=== PATIENT | female | born 1995 | race Caucasian/White ===

== ENCOUNTER 2016-05-03 06:10 | Emergency (ER) | payer OTHER ==
[~2016-05-03] VITALS: Ht 162.6 cm; Wt 64.1 kg
[2016-05-03 06:16] VITALS: TEMP 37.4; Ht 162.6 cm; Wt 64.1 kg
[2016-05-03] MEDS ORDERED: ETONMIS VAGRING (06:42)
[2016-05-03] MEDS ORDERED: SODIUM CHLORIDE 0.9% 1000ML 1,000 ML IV STA (07:10)
[2016-05-03 07:21] LABS: BASO % 0.4 %; BASO ABS # 0.02 K/uL (0-0.2); COMPLETE YES; EOS % 0.2 %; HEMATOCRIT 41.2 % (37-47); IG% 0.2 %; LYMPH % 9.4 %; LYMPH ABS # 0.48 K/uL (1.2-3.4); MEAN CELL VOLUME 84.3 fL (80-100); MEAN CORPUSCULAR HEMOGLOBIN 29.4 pg (25-34); MEAN PLATELET VOLUME 11.8 fL (7.4-10.4); MONO % 12.7 %; NEUT % 77.1 %; PLATELET COUNT 120 K/uL (130-400); RED BLOOD COUNT 4.89 M/uL (4.2-5.4)
[2016-05-03 07:22] LABS: URINE APPEARANCE CLEAR (CLEAR); URINE BILIRUBIN NEG (NEG); URINE COLOR YELLOW; URINE NITRITE NEG (NEG); URINE SPECIFIC GRAVITY 1.028 (1.000-1.030); UROBILINOGEN NEG (NEG); ZZUR CULT IF INDIC CLEAN CATCH NO
[2016-05-03 07:26] LABS: PARTIAL THROMBOPLASTIN RATIO 1.1; PROTHROMBIN TIME (PATIENT) 10.7 SECONDS (9.0-12.0)
[2016-05-03 07:26] LABS: MANUAL MICROSCOPIC REQUIRED? NO; REVIEW REQ? NO
[2016-05-03 07:30] LABS: ALT/SGPT 31 U/L (12-78); BLOOD UREA NITROGEN 7 mg/dl (7-18); BUN/CREATININE RATIO 6.3 (10-20); CALCIUM 8.9 mg/dl (8.5-10.1); CARBON DIOXIDE 25 mmol/L (21-32); CHLORIDE 106 mmol/L (98-107); GLUCOSE 96 mg/dl (70-99); MAGNESIUM 1.8 mg/dl (1.8-2.4); POTASSIUM 3.4 mmol/L (3.5-5.1); SODIUM 141 mmol/L (136-145)
[2016-05-03 07:40] LABS: ALKALINE PHOSPHATASE 44 U/L (45-117); AST/SGOT 20 U/L (15-37); THYROID STIMULATING HORMONE 0.557 uIu/ml (0.300-4.500)
[2016-05-03 07:52] LABS: BENZODIAZEPINE, URINE NEG (NEG); COCAINE,URINE NEG (NEG); PHENCYCLIDINE, URINE NEG (NEG)
--- NOTE | 2016-05-03 07:56 | EMERGENCY ROOM VISIT NOTE ---
History First contact with patient: 06:55 Chief Complaint: FLU LIKE SX Stated Complaint: FEVER,SORE THROAT,PASSED OUT SPELL History of Present Illness The patient is a 20 year old female who presents to the Emergency Department by private vehicle for evaluation of her fever, sore throat, and episode of syncope. Last evening, the patient developed a sore throat with associated headache and fever. She took her temperature yesterday and it was found to be 10 1F. She did take Tylenol on 2 Separate Occasions for Her Symptoms Which Did Help Relieve Her Fever. Patient reports that she was up multiple times throughout the night with hot flashes. This morning, after going to the restroom, she reports feeling lightheaded and developed tunnel vision before she passed out. She did not strike her head on the ground. She was only unconscious for a few seconds. Patient did not defecate herself. She did not bite her tongue. There is no seizure-like activity. She rates her current discomfort as a 1.5/10. This is not the worst headache of her life. She denies any blurry vision, double vision, slurred speech, facial droop, unilateral weakness/numbness, chest pain, palpitations, hemoptysis, nausea, vomiting, abdominal pain, hematochezia, melena, hematuria, or dysuria. Review of Systems A complete 10-point Review of Systems was discussed with the patient, with pertinent positives and negatives listed in the History of Present Illness. All remaining Review of Systems questions can be considered negative unless otherwise specified. Social History Smoking Status: Current Some Day Smoker Smokeless Tobacco Use: No Alcohol Use: occasionally Drug Use: none Marital Status: single Current/Historical Medications Scheduled Etonogestrel/Ethinyl Estradiol (Nuvaring), 1 EA VAGRING MONTHLY Oseltamivir (Tamiflu), 75 MG PO BID Allergies Coded Allergies: No Known Allergies (Unverified , 05/03/16) Physical Exam Vital Signs Date Time Temp Pulse Resp B/P Pulse Ox O2 Delivery O2 Flow Rate FiO2 05/03/16 11:01 89 18 97/62 05/03/16 09:46 95 16 98/68 98 Room Air 05/03/16 09:26 96 05/03/16 07:44 98 16 102/66 05/03/16 07:00 113 16 104/66 117 102/71 122 78/52 05/03/16 06:40 107 05/03/16 06:16 37.4 120 20 115/67 99 Room Air Pain Rating (0-10): 1.5 Physical Exam VITAL SIGNS - Vital signs and nursing notes were reviewed. GENERAL - 20-year-old female appearing her stated age who is in no acute distress. Communicates well with provider and answers questions appropriately. SKIN - Without rashes. HEAD - NC/AT. EYES - PERRL with EOMI bilaterally. Sclera anicteric. Palpebral conjunctiva pink and moist with no injection noted. EARS - No deformities of external structures noted on gross examination bilaterally. No pain elicited with palpation of the tragus bilaterally. External auditory canals without discharge or otorrhea. Tympanic membranes pearly handley without retraction or bulging. No fluid or purulent material visualized behind the TM. Handle of malleus, umbo, cone of light, pars tensa/ flaccid all easily visualized. NOSE - Midline and without cyanosis. No epistaxis or purulent drainage noted. Septum midline without deviation or septal hematoma noted. MOUTH/OROPHARYNX - Without perioral cyanosis. Buccal mucosa pink and moist and without leukoplakia. Tongue midline with equal elevation of palate bilaterally. No tonsillar hypertrophy, erythema, or exudates noted. Good dentition noted. NECK - Neck with FROM. Supple to palpation. No lymphadenopathy noted. No nuchal rigidity. LUNGS - Chest wall symmetric without accessory muscle use, intercostals retractions, or central cyanosis. Normal vesicular breath sounds CTA B/L. No wheezes, rales, or rhonchi appreciated. CARDIAC - RRR with S1/S2. No murmur, rubs, or gallops appreciated. ABDOMEN - Abdominal contour flat without pulsations or visible masses. BS normoactive all four quadrants. No tenderness, palpable masses, hepatosplenomegaly, or ascites noted. EXTREMITIES - No clubbing or peripheral cyanosis. No pretibial edema present. +3 /5 radial, posterior tibial, and dorsalis pedis pulses palpated throughout. +5/ 5 strength noted in UE/LE bilaterally. NEUROLOGIC - Cranial nerves II through XII grossly intact. Sensory intact to light touch throughout. PSYCH - A&Ox3 and cooperates fully with examiner. Pt is very pleasant and interacts well with examiner. Medical Decision & Procedures ER Provider Diagnostic Interpretation: Radiological imaging and reports were reviewed by myself. Radiologist's Interpretation as follows: CHEST 2 VIEWS ROUTINE HISTORY: cough/fever/syncope COMPARISON: None. FINDINGS: The lungs are clear. Cardiac silhouette is normal in size. No pleural effusions. No pneumothorax. IMPRESSION: No acute process. Laboratory Results 05/03/16 06:35 Red Blood Count 4.89, Mean Corpuscular Volume 84.3, Mean Corpuscular Hemoglobin 29.4, Mean Corpuscular Hemoglobin Concent 35.0, Mean Platelet Volume 11.8, Neutrophils (%) (Auto) 77.1, Lymphocytes (%) (Auto) 9.4, Monocytes (%) (Auto) 12.7, Eosinophils (%) (Auto) 0.2, Basophils (%) (Auto) 0.4, Neutrophils # (Auto ) 3.93, Lymphocytes # (Auto) 0.48, Monocytes # (Auto) 0.65, Eosinophils # (Auto ) 0.01, Basophils # (Auto) 0.02 05/03/16 06:35 Test 05/03/16 06:30 05/03/16 06:35 05/03/16 07:38 05/03/16 07:45 Urine Color YELLOW Urine Appearance CLEAR (CLEAR) Urine pH 5.0 (4.5-7.5) Urine Specific Liberal 1.028 (1.000-1.030) Urine Protein NEG (NEG) Urine Glucose (UA) NEG (NEG) Urine Ketones TRACE (NEG) Urine Occult Blood 2+ (NEG) Urine Nitrite NEG (NEG) Urine Bilirubin NEG (NEG) Urine Urobilinogen NEG (NEG) Urine Leukocyte Esterase NEG (NEG) Urine WBC (Auto) 1-5 /hpf (0-5) Urine RBC (Auto) 5-10 /hpf (0-4) Urine Hyaline Casts (Auto) 1-5 /lpf (0-5) Urine Epithelial Cells (Auto) 10-20 /lpf (0-5) Urine Bacteria (Auto) NEG (NEG) Urine Test NEG (NEG) Urine Opiates Screen NEG (NEG) Urine Methadone, Qualitative NEG (NEG) Urine Barbiturates NEG (NEG) Urine Phencyclidine (PCP) Level NEG (NEG) Ur Amphetamine/Methamphetamine NEG (NEG) MDMA (Ecstasy) Screen NEG (NEG) Urine Benzodiazepines Screen NEG (NEG) Urine Cocaine Metabolite NEG (NEG) Urine Marijuana (THC) NEG (NEG) White Blood Count 5.10 K/uL (4.8-10.8) Red Blood Count 4.89 M/uL (4.2-5.4) Hemoglobin 14.4 g/dL (12.0-16.0) Hematocrit 41.2 % (37-47) Mean Corpuscular Volume 84.3 fL (80-100) Mean Corpuscular Hemoglobin 29.4 pg (25-34) Mean Corpuscular Hemoglobin Concent 35.0 g/dl (32-36) Platelet Count 120 K/uL (130-400) Mean Platelet Volume 11.8 fL (7.4-10.4) Neutrophils (%) (Auto) 77.1 % Lymphocytes (%) (Auto) 9.4 % Monocytes (%) (Auto) 12.7 % Eosinophils (%) (Auto) 0.2 % Basophils (%) (Auto) 0.4 % Neutrophils # (Auto) 3.93 K/uL (1.4-6.5) Lymphocytes # (Auto) 0.48 K/uL (1.2-3.4) Monocytes # (Auto) 0.65 K/uL (0.11-0.59) Eosinophils # (Auto) 0.01 K/uL (0-0.5) Basophils # (Auto) 0.02 K/uL (0-0.2) RDW Standard Deviation 39.0 fL (36.4-46.3) RDW Coefficient of Variation 12.7 % (11.5-14.5) Immature Granulocyte % (Auto) 0.2 % Immature Granulocyte # (Auto) 0.01 K/uL (0.00-0.02) Prothrombin Time 10.7 SECONDS (9.0-12.0) Prothromb Time International Ratio 1.0 (0.9-1.1) Activated Partial Thromboplast Time 27.5 SECONDS (21.0-31.0) Partial Thromboplastin Ratio 1.1 D-Dimer 260 ug/L FEU (0-500) Anion Gap 10.0 mmol/L (3-11) Est Creatinine Clear Calc Drug Dose 69.9 ml/min Estimated GFR () 83.1 Estimated GFR (Non- 71.7 BUN/Creatinine Ratio 6.3 (10-20) Calcium Level 8.9 mg/dl (8.5-10.1) Magnesium Level 1.8 mg/dl (1.8-2.4) Total Bilirubin 0.3 mg/dl (0.2-1) Aspartate Amino Transf (AST/SGOT) 20 U/L (15-37) Alanine Aminotransferase (ALT/SGPT) 31 U/L (12-78) Alkaline Phosphatase 44 U/L (45-117) Total Creatine Kinase 69 U/L (26-192) Creatine Kinase MB < 0.5 ng/ml (0.5-3.6) Creatine Kinase MB Ratio (0-3.0) Total Protein 7.5 gm/dl (6.4-8.2) Albumin 3.7 gm/dl (3.4-5.0) Globulin 3.8 gm/dl (2.5-4.0) Albumin/Globulin Ratio 1.0 (0.9-2) Lipase 138 U/L (73-393) Thyroid Stimulating Hormone (TSH) 0.557 uIu/ml (0.300-4.500) Bedside Troponin I 0.000 ng/ml (0-0.045) Influenza Type A Antigen POS for Influ A (NEG) Influenza Type B Antigen Neg for Influ B (NEG) Medications Administered Medications (Trade) Dose Ordered Sig/Ronn Route Start Time Stop Time Status Last Admin Dose Admin Sodium Chloride 1,000 ml @ 999 mls/hr Q1H1M STAT IV 05/03/16 07:10 05/03/16 08:10 DC 05/03/16 07:10 999 MLS/HR Sodium Chloride (Nss 500ml) 500 ml @ 999 mls/hr Q31M STAT IV 05/03/16 08:19 05/03/16 08:49 DC 05/03/16 08:59 999 MLS/HR Oseltamivir Phosphate (Tamiflu Cap) 75 mg NOW STAT PO 05/03/16 08:38 05/03/16 08:40 DC 05/03/16 08:58 75 MG Ketorolac Tromethamine (Toradol Inj) 30 mg NOW STAT IV 05/03/16 08:38 05/03/16 08:40 DC 05/03/16 08:59 30 MG Procedure Patient was placed on the gambling monitor and monitored throughout the entire extent of their stay. In addition, the patient's pulse oximetry was monitored throughout the entire stay. Any abnormalities or aberrancies were addressed appropriately. ECG Indication: syncope Rate (beats per minute): 93 Rhythm: sinus tachycardia Findings: no acute ischemic change, no ectopy Comparison ECG Date: no prior available ED Course Patient was seen and evaluated by myself. Labs were drawn, saline lock in place. The patient was hydrated with a 1000 mL normal saline bolus. She declines soothing for pain. Orthostatic vital signs were obtained. Chest x- ray and EKG were obtained. Laboratory results demonstrate no acute leukocytosis , worrisome anemia, or bandemia. The patient has no significant electrolyte abnormalities. Cardiac enzymes are negative. Troponin is negative. D-dimer was not elevated. Urinalysis does not suggest infection. Patient was found to be influenza A+. She was hydrated with an additional 500 mL normal saline bolus. She received Tamiflu and Toradol for body aches. The patient was able to drink while in the emergency department. The patient was encouraged to follow-up with her primary care provider from today's visit. She was educated on worrisome symptoms for return visit to the emergency department. Patient discharged home afebrile and in good condition. Medical Decision Given the patient's presentation and stated complaints, I did elect to perform the above-mentioned workup. The patient presents after sacral episode. The patient has fevers as well as a cough and sore throat. She has no leukocytosis. Her exam is otherwise unremarkable. The patient likely sustained a vasovagal episode of syncope. D-dimer was not elevated to suggest PE as diagnosis. She was initially tachycardic which did improve with IV fluid resuscitation. She received Tamiflu for her influenza positive testing as well as Toradol for body aches and pains. She will utilize over the counter medication for symptomatic treatment. She will return to the emergency department in the setting of any changing or worsening symptoms. Patient discharged home in good condition. In the evaluation and treatment of this patient, the following differential diagnoses were considered: Meningitis, encephalitis, PE, ACS, pneumonia, bronchitis, viral URI, amongst others. Impression Primary Impression: Influenza A Additional Impressions: Fever Syncope Departure Information Dispostion Home / Self-Care Condition GOOD Prescriptions Oseltamivir (Tamiflu) 75 Mg Cap 75 MG PO BID for 5 Days, #10 CAP Prov: Dharmesh Merchant, DANDRE 05/03/16 Referrals No Doctor, Assigned (PCP) Patient Instructions ED Influenza Ch, ED Near Syncope Vasovagal, [facility] Additional Instructions You have been seen in the emergency department today for your fever, upper respiration symptoms, and syncope. Please use the Tamiflu as prescribed for the next 5 days. For pain./fever control, you can use the following [id number] medicines ( if >12 yo): - Regular strength (325mg/tab) Tylenol (acetaminophen) 2 tabs every 4-6 hours as needed. Do not exceed 12 tablets in a 24 hour period. Avoid taking more than 4 grams (4000 mg) of Tylenol per day. This includes any other sources of acetaminophen you may take on a regular basis. - Regular strength (200 mg/tab) Advil (ibuprofen) 1-2 tabs every 4-6 hours as needed. Do not exceed a dose of 3200 mg per day. Follow-up with your primary care provider from today's visit. Return for any changing or worsening symptoms. Problem Qualifiers Additional Impressions: Fever Fever type: unspecified Qualified Codes: R50.9 - Fever, unspecified Syncope Syncope type: vasovagal syncope Qualified Codes: R55 - Syncope and collapse
[2016-05-03] MEDS ORDERED: SODIUM CHLORIDE 0.9% 500ML 500 ML IV STA (08:19)
--- NOTE | 2016-05-03 08:28 | DIAGNOSTIC IMAGING REPORT ---
CHEST 2 VIEWS ROUTINE HISTORY: cough/fever/syncope COMPARISON: None. FINDINGS: The lungs are clear. Cardiac silhouette is normal in size. No pleural effusions. No pneumothorax. IMPRESSION: No acute process. Electronically signed by: Thiago Valdez M.D. 05/03/2016 8:26 AM Dictated Date/Time: 05/03/2016 8:25 AM
[2016-05-03] MEDS ORDERED: OSELTAMIVIR PHOSPHATE 75 MG CAP PO STA (08:38)
[2016-05-03] MEDS ORDERED: KETOROLAC TROMETHAMINE 30 MG/ML VIAL IV STA (08:38)
[2016-05-03 09:46] VITALS: O2SAT 98
[2016-05-03] MEDS ORDERED: OSEL75CA12 PO ×2 (10:49→11:10)
[2016-05-03 11:01] VITALS: BP 97/62; PULSE 89
== END 2016-05-03 11:12 | disposition home or self-care (01) ==
LOC: C.EDB 06:12
DX: J09.X2 Influenza due to identified novel influenza A virus with other respiratory manifestations (principal); R55 Syncope and collapse; F17.200 Nicotine dependence, unspecified, uncomplicated